=== PATIENT | male | born 1950 | race Caucasian/White ===

== ENCOUNTER 2020-03-10 11:25 | Emergency (ER) | payer OTHER ==
[~2020-03-10] VITALS: Ht 175.3 cm; Wt 71.2 kg
--- NOTE | 2020-03-11 11:10 | EKG ---
[facility] [address] [facility] [place], [place] [address] Signed Sinus rhythm with 1st degree AV block Anterior infarct , age undetermined Inferior injury pattern ACUTE PR / STEMI Consider right ventricular involvement in acute inferior infarct Abnormal ECG No previous ECGs available Confirmed by ELAINE CAN MD ([id number]) on 03/11/2020 11:10:19 AM Electronically Signed By: ELAINE CAN MD 03/11/20 1110 PATIENT NAME: DANYEL SMALL Electrocardiogram DATE OF : 52 PHYSICIAN: ELAINE CAN MD REPORT #: [id number] REPORT IS CONFIDENTIAL AND NOT TO BE RELEASED WITHOUT AUTHORIZATION
== END 2020-03-10 12:19 | disposition short-term general hospital (02) ==
LOC: ED 11:25
DX: I21.3 ST elevation (STEMI) myocardial infarction of unspecified site (principal); Z88.5 Allergy status to narcotic agent
CPT/HCPCS: 71045; 80053; 83735; 84484; 85025; 93005; 93010; 96374; 96375; 99285-25; J1644; U0003

== ENCOUNTER 2024-11-12 13:58 | Emergency (ER) | payer OTHER ==
[~2024-11-12] VITALS: Ht 175.3 cm; Wt 62.0 kg
[~2024-11-12 13:58] MED LIST: AMLODIPINE-BEN1 EAC1 PO; ASPIRIN81 MG PO; CYCLOBENZAPRINE10 MG PO; ETODOLAC400 M1 PO; NEURONTIN300 MG PO; PROAIR DIGIHAL90 MCG INH; SPIRIVA RESPIMAT4 G1 INH
[2024-11-12] MEDS ORDERED: ASPIRIN 81 MG CHEW PO ONE (14:15)
[2024-11-12 14:29] LABS: BASOPHILS 0.8 % (0.2-1.2); EOSINOPHILS 0.5 % (0.8-7.0); LYMPHOCYTES 28.6 % (21.8-53.1); MCH 30.0 PG (25.7-32.2); MCHC 33.8 g/dL (32.3-36.5); MCV 88.7 fL (79.0-92.2); MONOCYTES 10.6 % (5.3-12.2); NEUTROPHILS 59.2 % (34.0-67.9); RBC 4.60 M/uL (4.63-6.08)
[2024-11-12 14:33] LABS: ALT (SGPT) 12.0 U/L (14-59); AST (SGOT) 24.0 U/L (15-37); GLOMERULAR FILTRATION RATE,EST 58.0 mL/min (>60); PROTEIN, TOTAL 8.3 g/dL (6.4-8.2); UREA NITROGEN 14.0 mg/dL (7-18)
[2024-11-12 16:02] LABS: BLOOD/HGB, URINE NEGATIVE (Negative); KETONE, URINE SMALL (Negative); LEUK ESTERASE, URINE NEGATIVE (negative); NITRITE, URINE NEGATIVE (negative)
[2024-11-12 16:18] LABS: AMPHETAMINES, URINE NEGATIVE (NEGATIVE); BARBITURATES, URINE NEGATIVE (NEGATIVE); BENZODIAZEPINE, URINE NEGATIVE (NEGATIVE); CANNABINOID, URINE NEGATIVE (NEGATIVE); COCAINE, URINE NEGATIVE (NEGATIVE); ECSTASY, URINE NEGATIVE (NEGATIVE); FENTANYL, URINE NEGATIVE (NEGATIVE); METHADONE, URINE NEGATIVE (NEGATIVE); OPIATES, URINE NEGATIVE (NEGATIVE); OXYCODONE, URINE NEGATIVE (NEGATIVE); PHENCYCLIDINE, URINE NEGATIVE (NEGATIVE)
[2024-11-12 16:57] VITALS: BP 167/91
--- NOTE | 2024-11-13 21:21 | EKG ---
[facility] [address] [facility] [place] [address] Signed Normal sinus rhythm Normal ECG When compared with ECG of 10-MAR-2020 11:35, ST no longer elevated in Inferior leads ST no longer depressed in Anterolateral leads T wave inversion no longer evident in Anterolateral leads Confirmed by Casa Romero DO ([id number]) on 11/13/2024 9:21:30 PM Electronically Signed By: CASA ROMERO DO [id number]/[id number] PATIENT NAME: STACIDANYEL AVILEZ Electrocardiogram DATE OF : 52 PHYSICIAN: CASA ROMERO DO REPORT #: [id number] REPORT IS CONFIDENTIAL AND NOT TO BE RELEASED WITHOUT AUTHORIZATION
== END 2024-11-12 16:57 | disposition home or self-care (01) ==
LOC: ED 13:58
PROVIDERS: Emergency Medicine
DX: R41.0 Disorientation, unspecified (principal); I25.2 Old myocardial infarction; F17.200 Nicotine dependence, unspecified, uncomplicated; Z88.5 Allergy status to narcotic agent; Z79.82 Long term (current) use of aspirin; Z79.899 Other long term (current) drug therapy
CPT/HCPCS: 36415; 71045; 80053; 80307; 81003; 83735; 84484; 85025; 93005; 93010; 99285-25; A9270